=== PATIENT | female | born 1960 | race Caucasian/White ===

== ENCOUNTER → 2018-12-08 | Outpatient (CLI) | payer BC ==
--- NOTE | 2018-12-08 22:39 | EKG ---
FACILITY: [facility] [place] PATIENT NAME: ARELY FRANKLIN : [id number] MR: [id number] V: [id number] EXAM DATE: ORDERING PHYSICIAN: SKYLAR LUNA TECHNOLOGIST: DAYANA Test Reason : PRE OP Blood Pressure : / mmHG Vent. Rate : 075 BPM Atrial Rate : 075 BPM P-R Int : 182 ms QRS Dur : 088 ms QT Int : 388 ms P-R-T Axes : 071 071 069 degrees QTc Int : 433 ms Normal sinus rhythm Normal ECG No previous ECGs available Confirmed by Shayne Garcia ([id number]) on 12/09/2018 7:52:47 AM Referred By: CHERYL Confirmed By:Shayne Spears
== END ==
LOC: RESP 15:37
PROVIDERS: ATTEND Orthopaedic Surgery
DX: Z01.810 Encounter for preprocedural cardiovascular examination (principal); Z01.812 Encounter for preprocedural laboratory examination; M16.11 Unilateral primary osteoarthritis, right hip; E03.9 Hypothyroidism, unspecified; F17.210 Nicotine dependence, cigarettes, uncomplicated
CPT/HCPCS: 93005

== ENCOUNTER → 2018-12-16 | Outpatient (CLI) | payer BC ==
--- NOTE | 2018-12-16 13:18 | RADIOLOGY IMAGING REPORT ---
FACILITY: [facility] PATIENT NAME: Meghann Padilla : 1960 MR: [id number] V: [id number] EXAM DATE: ORDERING PHYSICIAN: TASHI RICK TECHNOLOGIST: Location: [facility] [place] Patient: Meghann Padilla : 1960 Visit/Account:[id number] Date of Sevice: 12/16/2018 CHEST PA LAT History: FINDINGS: Comparison studies: None. Tubes and Lines: None. Lungs and pleura: Well aerated. No evidence of focal consolidation or pleural effusions. Mediastinum: normal. Cardiac silhouette: normal . Osseous structures: Minimal endplate spondylitic changes unremarkable for age IMPRESSION: Normal chest Report Dictated By: Ankit Paul MD at 12/16/2018 1:13 PM Report E-Signed By: Ankit Paul MD at 12/16/2018 1:14 PM WSN:[id number]
== END ==
LOC: RAD 10:48
PROVIDERS: ATTEND Family Medicine
DX: Z01.818 Encounter for other preprocedural examination (principal)
CPT/HCPCS: 71046